=== PATIENT | female | born 1940 | race African-American/Black ===

== ENCOUNTER 2019-01-06 00:57 | Inpatient (IN) ==
[2019-01-06 02:52] LABS: Basophils # 0.1 10*3/uL (0.0-0.2); Basophils % 0.4 % (0.0-0.8); Eosinophils % 0.1 % (0.00-10.9); Hematocrit 30.8 VOL% (35.7-47.0); Hemoglobin 9.8 GM/DL (12.0-16.0); Immature Granulocytes % 0.5 %; Lymphocytes # 2.4 10*3/uL (1.4-4.0); Lymphocytes % 12.8 % (21.3-54.2); Mean Corpuscular HGB Conc 31.8 GM/DL (32-36); Mean Corpuscular Volume 88.5 FL (87-102); Monocytes % 6.7 % (1.7-12.7); Neutrophils % 79.5 % (38.7-73.9); Platelet Count 306 T/CUMM (130-400); Red Blood Count 3.48 MC/CUMM (3.8-5.5); Red Cell Distribution Width 16.1 % (9.3-17.3); White Blood Count 18.9 T/CUMM (4-12)
[2019-01-06 03:08] LABS: Albumin 1.9 G/DL (3.4-5.0); Bilirubin,Total 0.6 MG/DL (0.2-1.0); Calcium 8.5 MG/DL (8.5-10.1); Osmolality,Calculated 280.4 MOS/KG (273-304); Total Protein 8.2 G/DL (6.4-8.3)
[2019-01-06] MEDS ORDERED: SODIUM CHLORIDE 0.9% 1,000 ML IV STA (03:24)
[2019-01-06] MEDS ORDERED: CEFEPIME 1,000 MG in SODIUM CHLORIDE 0.9% 100 ML IV STA (03:25)
[2019-01-06 04:20] LABS: Amorphous Crystals,Urine Occasional /HPF (Few); Apearance,Urine Slightly Hazy (Clear); Bacteria,Urine Few /HPF (Few); Bilirubin,Urine Negative (Negative); Blood, Urine Small mg/dL (Negative); Glucose,Urine (UA) Negative (Negative); Hyaline Casts,Urine 7 /LPF (0-3); Ketones,Urine 5 mg/dL (Negative); Mucus,Urine Occasional /LPF (Occasional); Nitrite,Urine Negative (Negative); Protein,Urine 30 MG/DL; RBC,Urine 1 /HPF (0-4); Squamous Epithelial Cell,Urine Occasional /HPF (0-10); Urine Specific Gravity 1.019 (1.001-1.035); Urine Urobilinogen < 2.0 EU/DL (0.2-1.0); WBC,Urine 1 /HPF (0-6)
[2019-01-06 04:23] LABS: Urine Color Yellow (Yellow)
[2019-01-06] MEDS ORDERED: VANCOMYCIN INJ 1,000 MG in SODIUM CHLORIDE 0.9% 250 ML IV STA (04:59)
[2019-01-06] MEDS ORDERED: ONDANSETRON 4 MG/2 ML VIAL IV PRN (05:38)
[2019-01-06] MEDS: VANCOMYCIN INJ 1,000 MG in SODIUM CHLORIDE 0.9% 250 ML IV STA ×2 (09:05→09:19)
[2019-01-06] MEDS: PANTOPRAZOLE 40 MG TABLET PO SCH (09:19)
[2019-01-06] MEDS: ACETAMINOPHEN 325 MG TABLET PO PRN (09:19)
[2019-01-06] MEDS: SODIUM CHLORIDE 0.9% 1,000 ML IV SCH ×2 (09:20→15:17)
[2019-01-07] MEDS: ACETAMINOPHEN 325 MG TABLET PO PRN (00:40)
[2019-01-07] MEDS: SODIUM CHLORIDE 0.9% 1,000 ML IV SCH ×4 (00:48→20:32)
[2019-01-07 06:18] LABS: Basophils # 0.1 10*3/uL (0.0-0.2); Basophils % 0.3 % (0.0-0.8); Eosinophils # 0.1 10*3/uL (0.0-0.87); Eosinophils % 0.4 % (0.00-10.9); Hematocrit 25.3 VOL% (35.7-47.0); Immature Granulocytes % 0.7 %; Immature Granulocytes Absolute 0.11 #; Lymphocytes # 2.5 10*3/uL (1.4-4.0); Lymphocytes % 15.8 % (21.3-54.2); Mean Corpuscular HGB Conc 31.6 GM/DL (32-36); Mean Corpuscular Volume 88.5 FL (87-102); Mean Platelet Volume 9.9 FL (9.6-12.0); Monocytes % 7.9 % (1.7-12.7); Neutrophils % 74.9 % (38.7-73.9); Platelet Count 465 T/CUMM (130-400); Red Blood Count 2.86 MC/CUMM (3.8-5.5); Red Cell Distribution Width 16.3 % (9.3-17.3)
[2019-01-07 07:00] LABS: Albumin 1.5 G/DL (3.4-5.0); Bilirubin,Total 0.6 MG/DL (0.2-1.0); Total Protein 6.6 G/DL (6.4-8.3)
[2019-01-07] MEDS: PANTOPRAZOLE 40 MG TABLET PO SCH (13:15)
[2019-01-08] MEDS: LEVOTHYROXINE 88 MCG TABLET PO SCH (06:15)
[2019-01-08 06:40] LABS: Basophils # 0.1 10*3/uL (0.0-0.2); Basophils % 0.5 % (0.0-0.8); Eosinophils % 0.1 % (0.00-10.9); Hematocrit 25.8 VOL% (35.7-47.0); Hemoglobin 8.2 GM/DL (12.0-16.0); Immature Granulocytes Absolute 0.17 #; Lymphocytes # 2.4 10*3/uL (1.4-4.0); Lymphocytes % 14.3 % (21.3-54.2); Mean Corpuscular HGB Conc 31.8 GM/DL (32-36); Mean Corpuscular Volume 88.4 FL (87-102); Mean Platelet Volume 10.1 FL (9.6-12.0); Monocytes % 8.7 % (1.7-12.7); Neutrophils % 75.4 % (38.7-73.9); Platelet Count 489 T/CUMM (130-400); Red Blood Count 2.92 MC/CUMM (3.8-5.5); Red Cell Distribution Width 16.6 % (9.3-17.3); White Blood Count 16.5 T/CUMM (4-12)
[2019-01-08 06:45] LABS: Calcium 7.8 MG/DL (8.5-10.1); Osmolality,Calculated 283.7 MOS/KG (273-304)
[2019-01-08] MEDS: CALCIUM (CARBONATE)/VITAMIN D 500 MG-200 UNIT TABLET PO SCH (08:31)
[2019-01-08] MEDS: PANTOPRAZOLE 40 MG TABLET PO SCH (08:32)
[2019-01-08] MEDS: MULTIVITAMIN (CENTRUM) TABLET PO SCH (08:32)
[2019-01-08] MEDS: metFORMIN 500 MG TABLET PO SCH ×2 (09:50→16:25)
[2019-01-08] MEDS: SODIUM CHLORIDE 0.9% 1,000 ML IV SCH (14:36)
[2019-01-08] MEDS: SIMVASTATIN 20 MG TABLET PO SCH (21:10)
[2019-01-09] MEDS: LEVOTHYROXINE 88 MCG TABLET PO SCH (06:15)
[2019-01-09] MEDS: CALCIUM (CARBONATE)/VITAMIN D 500 MG-200 UNIT TABLET PO SCH (08:00)
[2019-01-09] MEDS: PANTOPRAZOLE 40 MG TABLET PO SCH (08:32)
[2019-01-09] MEDS: metFORMIN 500 MG TABLET PO SCH ×2 (08:32→16:06)
[2019-01-09] MEDS: MULTIVITAMIN (CENTRUM) TABLET PO SCH (08:32)
[2019-01-09] MEDS: SODIUM CHLORIDE 0.9% 1,000 ML IV SCH ×2 (09:25→15:05)
[2019-01-09] MEDS ORDERED: SODIUM CHLORIDE 0.65% NASAL SPRAY 45 ML BOTTLE BOTH NARES PRN (10:35)
[2019-01-09] MEDS: SIMVASTATIN 20 MG TABLET PO SCH (20:34)
[2019-01-10] MEDS: LEVOTHYROXINE 88 MCG TABLET PO SCH (06:20)
[2019-01-10] MEDS: CALCIUM (CARBONATE)/VITAMIN D 500 MG-200 UNIT TABLET PO SCH (08:45)
[2019-01-10] MEDS: PANTOPRAZOLE 40 MG TABLET PO SCH (08:45)
[2019-01-10] MEDS: metFORMIN 500 MG TABLET PO SCH (08:45)
[2019-01-10] MEDS: SODIUM CHLORIDE 0.9% 1,000 ML IV SCH ×3 (08:45→13:25)
[2019-01-10] MEDS: MULTIVITAMIN (CENTRUM) TABLET PO SCH (08:45)
[2019-01-10 12:34] VITALS: BP 133/58
== END 2019-01-10 14:47 | disposition hospice, home (50) | DRG 641 ==
LOC: EDBD → EDUNIT# → N.EDINP 00:57 → N.ED 00:57 → OBSVTOIN 05:38 → SUATTDRO 05:38 → INTOOBSV 05:38 → N.5E 06:03 → SUATTDRO 01-09 18:02
PROVIDERS: ADMIT Internal Medicine Nephrology; ATTEND Internal Medicine